=== PATIENT | male | born 2000 | race Caucasian/White ===

== ENCOUNTER 2025-05-04 18:53 | Emergency (ER) | payer OTHER, SELFPAY ==
--- OUTSIDE RECORDS SUMMARY | 2025-05-04 18:55 | XMS_ITS | Clinical Summary ---
Author Organization [facility] Address [address] [place] [address] Phone Care Team Providers Care Mmd Unit Teacher Name Role Phone Hayes Woodward MD Primary Care Provider [phone] Allergies No known active allergies Medications clonazePAM (KLONOPIN PO) Take by mouth. Active Immunizations Immunization Administration Dates Next Due TDAP Vaccine 04/09/2019 Social History Tobacco Use Types Packs/Day Years Used Date Smoking Tobacco: Never Assessed Sex and Gender Information Value Date Recorded Sex Assigned at Not on file Legal Sex Male 11:50 PM CDT Gender Identity Not on file Sexual Orientation Not on file Last Filed Vital Signs Vital Sign Reading Time Taken Comments Blood Pressure 119/68 04/09/2019 2:15 AM CDT Pulse 90 04/09/2019 2:15 AM CDT Temperature 36.1 C (97 F) 04/09/2019 12:05 AM CDT Respiratory Rate 11 04/09/2019 2:15 AM CDT Oxygen Saturation 100% 04/09/2019 2:15 AM CDT Inhaled Oxygen Concentration - - Weight 63.5 kg (140 lb) 04/09/2019 12:05 AM CDT Height 170.2 cm (5' 7) 04/09/2019 12:05 AM CDT Body Mass Index 21.93 04/09/2019 12:05 AM CDT Plan of Treatment Health Maintenance Due Date Last Done Comments Hepatitis C Virus (HCV) Screening 1998 Human Papillomavirus (HPV) Immunization (1 - Male 3-dose series) 2013 SARS-COV-2 Immunization ( season) 2024 Influenza Immunization (Season Ended) 2025 12/23/2013 Respiratory Syncytial Virus (RSV) Immunization (Adult) (1 - 1-dose 75+ series) 2073 Hepatitis B Immunization Completed 999, 1998, 1998 DTaP/Tdap/Td Immunization Discontinued 2018, 06/21/2003, 05/31/1999, Additional history exists Meningococcal Immunization (ACWY) Aged Out No longer eligible based on patient's age to complete this topic Pneumococcal Immunization Combined Aged Out No longer eligible based on patient's age to complete this topic Rotavirus Immunization Aged Out No lo nger eligible based on patient's age to complete this topic Insurance [facility] Care Teams Mmd Unit Teacher Relationship Specialty Start Date End Date Hayes Woodward MD [address] [place] [address] PCP - General Family Medicine 04/09/19
--- OUTSIDE RECORDS SUMMARY | 2025-05-04 18:55 | XMS_ITS | Clinical Summary ---
Author Organization [facility] Address [address] [place] [id number] Care Team Providers Care Automobile Mechanic Helper Name Role Phone Alphonso Anderson MD Primary Care Provider [phone] Edmund Hernandez MD Unavailable [phone] Allergies Active Allergy Reactions Criticality Noted Date Comments Erythromycin GI Upset 11/13/2019 Medications No known medications Active Problems Problem Noted Date Diagnosed Date Bipolar 1 disorder ([facility]) 12/14/2019 Chest pain 12/14/2019 Social History Tobacco Use Types Packs/Day Years Used Date Smoking Tobacco: Former Electronic Cigarettes Smokeless Tobacco: Never Comments:former social smoke r but does continue to vaap Sex and Gender Information Value Date Recorded Sex Assigned at Not on file Legal Sex Male 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 Gender Identity Not on file Sexual Orientation Not on file Last Filed Vital Signs Vital Sign Reading Time Taken Comments Blood Pressure 116/76 12/30/2019 9:07 PM DERMATOLOGY NURSE Pulse 69 12/30/2019 9:07 PM DERMATOLOGY NURSE Temperature 37.1 C (98.7 F) 12/30/2019 9:07 PM DERMATOLOGY NURSE Respiratory Rate 18 12/30/2019 9:07 PM DERMATOLOGY NURSE Oxygen Saturation 100% 12/30/2019 9:07 PM DERMATOLOGY NURSE Inhaled Oxygen Concentration - - Weight 59 kg (130 lb) 12/30/2019 9:07 PM DERMATOLOGY NURSE Height 172.7 cm (5' 8) 12/30/2019 9:07 PM DERMATOLOGY NURSE Body Mass Index 19.77 12/30/2019 9:07 PM DERMATOLOGY NURSE Plan of Treatment Health Maintenance Due Date Last Done Comments Annual Physical 2001 Hepatitis C 2016 Hepatitis B Vaccines (1 of 3 - 19+ 3-dose series) 2017 COVID-19 Vaccine (2023-25 season) 2024 DTaP, Tdap and Td Vaccines (7 - Td or Tdap) 04/09/2029 04/09/2019, 06/21/2003, 05/31/1999, Additional history exists HPV Vaccines Aged Out No longer eligi ble based on patient's age to complete this topic Meningococcal B Vaccine Aged Out No l onger eligible based on patient's age to complete this topic Meningococcal Vaccine Aged Out No jules amador eligible based on patient's age to complete this topic Pneumococcal Vaccine: Pediatrics (0 to 5 Years) and At-Risk Patients (6 to 49 Years) Aged Out No longer eligible based on patient's age to complete this topic RSV Immunizations Under 20 Months Aged Out No longer eligible based on patient's age to complete this topic Insurance [facility] [employer] [facility] Care Teams Automobile Mechanic Helper Relationship Specialty Start Date End Date Alphonso Anderson MD [address] [id number] PCP - General INTERNAL MEDICINE 11/04/19 Edmund Hernandez MD [address] [place] [address] Consulting Physician CARDIOVASCULAR DISEASE 11/04/19
[2025-05-04 19:13] VITALS: BP 140/80; PULSE 91; RESP 18; TEMP 36.6; O2SAT 100
--- OUTSIDE RECORDS SUMMARY | 2025-05-04 20:15 | XMS_ITS | Encounter Summary ---
Author Organization [facility] Address [address] [place] [address] Care Team Providers Care Sanding Supervisor Name Role Phone Alphonso Anderson MD Primary Care Provider [phone] Edmund Hernandez MD Unavailable [phone] Encounter Details Date Type Department Care Team (Late st Contact Info) Description 04/25/2019 Abstract SFL CONVERSION [address] [place] [address] , Generic Conversion, Social History Tobacco Use Types Packs/Day Years Used Date Smoking Tobacco: Never Assessed Sex and Gender Information Value Date Recorded Sex Assigned at Not on file Legal Sex Male 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
--- OUTSIDE RECORDS SUMMARY | 2025-05-04 20:15 | XMS_ITS | Clinical Summary ---
Author Organization [facility] Address [address] [place] [address] Phone Care Team Providers Care Microsoft Crm Developer Name Role Phone Hayes Woodward MD Primary Care Provider [phone] Allergies No known active allergies Medications clonazePAM [...] patient's age to complete this topic Insurance [facility] Care Teams Microsoft Crm Developer Relationship Specialty Start Date End Date Hayes Woodward MD [address] [place] [address] PCP - General Family Medicine 04/09/19
--- NOTE | 2025-05-04 21:49 | ED_ITS ---
HPI - General Adult General Chief complaint: Skin/Abscess/Foreign Body Stated complaint: absess Time Seen by Provider: 05/04/25 19:41 Source: patient Mode of arrival: ambulatory Limitations: no limitations History of Present Illness HPI narrative: Patient has the tender red not that he noticed about 3 months ago started to get tender and red and was seen by the clinic and started on Bactrim. Patient was started on Bactrim twice a day yesterday in [place]. Patient denies any fever sore throat runny nose cough problems eating or drinking voiding or stooling dizziness or lightheadedness diaphoresis other lumps or bumps or swelling bleeding or bruising or any other complaints. Related Data Allergies Allergy/AdvReac Type Severity Reaction Status Date / Time No Known Allergies Allergy Verified 05/04/25 20:41 Review of Systems Review of Systems: All systems reviewed & are unremarkable except as noted in HPI and below Exam Narrative: White male no apparent distress. Head is normocephalic atraumatic eyes conjunctiva pink sclera nonicteric left upper buttocks shows a red tender swollen slightly fluctuant abscess just below the belt line. Neurologically he is alert and oriented x4 motor and sensory grossly intact gait is normal. Course Vital Signs Vital signs: Vital Signs Temperature 36.6 C 05/04/25 19:13 Pulse Rate 91 05/04/25 19:13 Respiratory Rate 18 05/04/25 19:13 Blood Pressure 140/80 05/04/25 19:13 Pulse Oximetry 100 05/04/25 19:13 Oxygen Delivery Room Air 05/04/25 19:13 Temperature 36.6 C 05/04/25 19:13 Pulse Rate 91 05/04/25 19:13 Respiratory Rate 18 05/04/25 19:13 Blood Pressure 140/80 05/04/25 19:13 Pulse Oximetry 100 05/04/25 19:13 Oxygen Delivery Room Air 05/04/25 19:13 Medical Decision Making [facility] Narrative Medical decision making narrative: Patient was placed in Room # 4 History and physical was performed. Independent Historian: patient External Source Review: Differential Dx includes but not limited to: abscess versus phlegmon, MRSA Medications were Reviewed: home meds reviewed Independently Interpreted by me: Meds, treatment, ED course: procedure note: I&D abscess preprocedure diagnosis abscess postprocedure diagnosis abscess verbal informed consent was obtained before the procedure was started. . Procedure: Appropriate time-out was taken. There was prepped and draped in usual sterile fashion. Local anesthesia was achieved using 5 cc of 1% lidocaine without epinephrine. The wound was then incised with a 11. Blade new small amount of pus was extruded and sebaceous material was also extruded. 1/2 inch iodoform gauze was used to pack the wound. Estimated blood loss 3 cc. A dressing was applied to the area and anticipatory guidance as well as standard postprocedure care was explained. Return precautions were given. Patient tolerated procedure well without complications Social Situation Impacting Patients Care: patient lives in [place] is going to go back there in 10 days Shared decision Making: Evaluation was discussed all questions were answered patient agreed with plan to finish his Bactrim take Tylenol ibuprofen as needed use low heating pad for 20 minutes 4 times a day for the next 4 days. He can follow up with Dr. Gomez on-call physician kecia in the next 4 days. patient was instructed to try to leave the out a form gauze in for the next 4 days then he is able to take it out. DISCHARGE DIAGNOSIS: Left buttocks abscess status post I&D DISPOSITION: discharge home CONDITION AT DISCHARGE: stable Vital Signs Vital Signs: Vital Signs Temperature 36.6 C 05/04/25 19:13 Pulse Rate 91 05/04/25 19:13 Respiratory Rate 18 05/04/25 19:13 Blood Pressure 140/80 05/04/25 19:13 Pulse Oximetry 100 05/04/25 19:13 Oxygen Delivery Room Air 05/04/25 19:13 Temperature 36.6 C 05/04/25 19:13 Pulse Rate 91 05/04/25 19:13 Respiratory Rate 18 05/04/25 19:13 Blood Pressure 140/80 05/04/25 19:13 Pulse Oximetry 100 05/04/25 19:13 Oxygen Delivery Room Air 05/04/25 19:13 Discharge Plan Discharge Clinical Impression: Abscess of buttock Patient Disposition: Home Condition: Stable Instructions: Antibiotic Form, Abscess (ED) Additional Instructions: finish your Bactrim until it is all gone. Tylenol and ibuprofen as needed for pain. Use low heating pad for 20 minutes at a time 4 times a day for the next 4 days. Follow up with Dr. Dr. Rolo Gomez in 4 days. Return if you get worse or develops any new symptoms. Patient Language: Citizen Of [place] Follow-up/Referrals: Dr. Rolo Hannon [Other] - 05/07/25 UNKNOWN,DOCTOR [Primary Care Provider] - Time of Disposition: 22:33
[2025-05-04] MEDS: LIDOCAINE 1% LOCAL INJ 10 ML VIAL 5 ML INFILTRATE (21:57)
[2025-05-04 22:42] VITALS: BP 128/74; PULSE 78; RESP 18; O2SAT 99
--- NOTE | 2025-05-06 12:06 | PC.NURSE ---
prelim wound culture results showed gram positive cocci- Dr Larson aware, continue Bactrim at this time.
--- NOTE | 2025-05-10 12:54 | PC.NURSE ---
left hip culture preliminary, cutibacterium acnes present, does not incude staph
--- NOTE | 2025-05-11 15:01 | PC.NURSE ---
final wound culture left hip reviewed. skin [place] growth noted. no sensitivities completed
== END 2025-05-04 22:42 | disposition home or self-care (01) ==
PROVIDERS: Emergency Provider Emergency Medicine
DX: L02.31 Cutaneous abscess of buttock (principal)
CPT/HCPCS: 10061; 87070; 87075; 87205; 99283; J2003